=== PATIENT | female | born 1955 | race African-American/Black ===

== ENCOUNTER 2016-12-11 10:37 | Emergency (ER) | payer OTHER ==
[~2016-12-11 10:37] MED LIST: ALEVE220 MG PO; AMIT25 PO; ANOROELLIPTA INH; CELEXA20 PO; H5 PO; HYDROCHLOROT25 MG PO; KAPIDEX60 MG PO; LIOR10 PO; NASONEX NAS; NEUR300 PO; NICODERM C21 MG/241 TOP; NORV10 PO; NYSTATIN PO; PRIN20 PO; PROTONIX PO; REM15 PO; TEGXR200 PO; UNKNOWN INHALER PO; VALCYTE PO; VOLT75 PO
[2016-12-11 11:54] LABS: BASOPHILS 0.3 %; BASOPHILS ABSOLUTE 0.03 10/3/uL (0.0-0.16); EOSINOPHILS 0 %; HEMOGLOBIN 11.8 g/dL (12.0-16.0); IMMATURE GRANULOCYTES 0.4 %; IMMATURE GRANULOCYTES ABSOLUTE 0.04 10/3/uL (0.0-0.11); LYMPHOCYTES 17.4 %; LYMPHOCYTES ABSOLUTE 1.75 10/3/uL (0.67-4.30); MEAN CORPUS HGB CONC 32.7 g/dL (32.0-36.0); MEAN CORPUSCULAR HEMOGLOB 29.1 pg (26.0-34.0); MEAN PLATELET VOLUME 9.6 fL (9.2-13.0); MONOCYTES 12.7 %; MONOCYTES ABSOLUTE 1.27 10/3/uL (0.21-1.20); NEUTROPHILS 69.2 %; NEUTROPHILS ABSOLUTE 6.94 10/3/uL (2.02-8.40); RBC DISTRIBUTION WIDTH 15.7 % (12.0-16.0); RED CELL COUNT 4.06 10/6/uL (4.0-5.6)
[2016-12-11 11:56] LABS: ER CBC TAT 0 Hrs 09 Mins; HEMATOCRIT 36.1 % (36.0-48.0); MANUAL DIFF NO %; MEAN CORPUSCULAR VOLUME 88.9 fL (80-100); PLATELET COUNT 184 10/3/uL (150-400)
[2016-12-11 12:09] LABS: A/G RATIO 0.6 (0.7-1.9); ALBUMIN 2.4 G/DL (3.5-5.0); BUN (BLOOD UREA NITROGEN) 6 MG/DL (6-23); CALCIUM, SERUM 7.9 MG/DL (8.5-10.4); CO2 (CARBON DIOXIDE) 28 MMOL/L (24-34); CREATININE 0.54 MG/DL (0.55-1.02); GFR AFRICAN AMERICAN 116 ML/MIN (>=60); GFR NON AFRICAN AMERICAN 100 ML/MIN (>=60); GLOBULIN 4.1 G/DL (2.5-4.1); GLUCOSE, SERUM 110 MG/DL (60-99); POTASSIUM, SERUM 3.6 MMOL/L (3.5-5.3); SGPT(ALT) 15 U/L (5-65); TOTAL BILIRUBIN 0.7 MG/DL (0-1.2); TOTAL PROTEIN 6.5 G/DL (6.0-8.5)
[2016-12-11 12:19] LABS: ALKALINE PHOSPHATASE 79 U/L (45-117); CHLORIDE, SERUM 96 MMOL/L (96-112); SGOT(AST) 47 U/L (5-40); SODIUM, SERUM 135 MMOL/L (135-148)
[2016-12-11 12:26] LABS: ASCORBIC ACID (UR NOT ORDER) NEG (NEG); BILIRUBIN, URINE NEGATIVE (NEG); ER URINALYSIS TAT 0 Hrs 14 Mins; KETONE, URINE 20 MG/DL (NEG); LEUKOCYTE ESTERASE(NOT OR NEG (NEG); NITRITE (URINE) NEG (NEG); WBC (NOT ORDERED) (RFLEX) 8 (0-5)
== END 2016-12-11 13:46 | disposition home or self-care (01) ==
LOC: ER 10:37
PROVIDERS: Nurse Practitioner
DX: R11.2 Nausea with vomiting, unspecified (principal); J44.9 Chronic obstructive pulmonary disease, unspecified; I10 Essential (primary) hypertension; K21.9 Gastro-esophageal reflux disease without esophagitis; F31.9 Bipolar disorder, unspecified; F17.200 Nicotine dependence, unspecified, uncomplicated; Z90.710 Acquired absence of both cervix and uterus; Z91.018 Allergy to other foods; Z79.899 Other long term (current) drug therapy
CPT/HCPCS: 80053; 81001; 83690; 85025; 96374; 99284; J2405

== ENCOUNTER 2016-12-17 18:52 | Inpatient (IN) | payer OTHER ==
--- NOTE | ~2016-12-17 | CN ---
Consultation Report [facility] [address] [place]. [address] NAME: VANESSA YOST : 51 STATUS : ADM IN [facility]#: [id number] AGE: 61 ADM/REG DATE : 12/17/16 MR#: [id number] REPORT SERV DATE: 12/20/16 DICTATED BY: MAMIE DIEHL DATE: 12/18/16 REPORT STATUS : Draft TRANSCRIBED BY: MODL DATE: 12/18/16 PULMONARY CONSULTATION DATE OF CONSULTATION: 12/18/2016 REASON FOR CONSULTATION: Diffuse infiltrates. HISTORY OF PRESENT ILLNESS: Ms. Yost is a 61-year-old black female, smoker, with a history of COPD, and chronic hypoxia, on supplemental oxygen at a flow rate of 2 L/minute, who was admitted complaining of a nonproductive cough, shortness of breath, and wheezing for the past three to four weeks. Pulmonary was consulted secondary to diffuse infiltrates noted on chest x-ray and for possible bronchoscopy/BAL, particularly in light of the patient's history of CMV colitis. The patient denies fever, chills, night sweats, hemoptysis, or chest pain. She does have ongoing abdominal pain and anorexia. She takes albuterol as an outpatient for COPD and states she is on another inhaler, but is unable to name that medication. She reports poor compliance with her medications and feels albuterol has not helped her recent symptoms. As noted, she has a history of chronic hypoxia and is on supplemental oxygen at a flow rate of 2 L/minute 24 hours per day. She does not have an outpatient superintendent transportation. PAST MEDICAL HISTORY: 1. COPD, diagnosed by her primary care physician. 2. Chronic hypoxia - on supplemental oxygen at a flow rate of 2 L/minute 24 hours per day. 3. 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 4. Recurrent urinary tract infections with ESBL E coli. 5. Hypertension. 6. Bipolar disorder. 7. GERD. 8. Coronary artery disease. 9. Previous hysterectomy. 10.Previous . 11.Partial sigmoidectomy secondary to colon polyps. 12.Chronic back pain. 13.Environmental allergies. FAMILY HISTORY: Smoker sister from lung cancer. SOCIAL HISTORY: Ms. Yost smoked up to one pack of cigarettes per day for fifty years and currently smokes just under one pack of cigarettes per day. She has a history of regular smoking of crack cocaine, but she quit last year. She denies ethanol intake, other past/present drug use, or chewing tobacco. 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 She is engaged and has one adult Consultation Report [facility] [id number] [place]. [address] NAME: VANESSA YOST : 51 STATUS : ADM IN PAT#: [id number] AGE: 61 ADM/REG DATE : 12/17/16 MR#: [id number] REPORT SERV DATE: 12/20/16 DICTATED BY: MAMIE DIEHL DATE: 12/18/16 REPORT STATUS : Draft TRANSCRIBED BY: DENA DATE: 12/18/16 daughter. MEDICATIONS: Outpatient and inpatient medications were reviewed and are as documented in the record. As noted above, she was on albuterol and one other inhaler as an outpatient. ALLERGIES: SHE DENIES MEDICATION ALLERGIES. REVIEW OF SYSTEMS: A 10-point system review was conducted and is remarkable for the symptoms as described in history of present illness: PHYSICAL EXAMINATION: VITAL SIGNS: Temperature 97.1 degrees, heart rate 90, blood pressure 107/60, respiratory rate 20, oxygen saturation 93% on supplemental oxygen at a flow rate of 2 L/minute. GENERAL: A well-nourished, well-developed, black female. Alert, oriented, no apparent distress. Sitting up in the chair. HEENT: Normocephalic. Atraumatic. There is no scleral icterus. The conjunctivae are clear. The oropharynx is clear. NECK: Supple. No JVD or lymphadenopathy was noted. LUNGS: Diminished breath sounds throughout despite good effort. There are end-inspiratory, end-expiratory wheezes in all staples. There are few scattered rhonchi. There are no crackles. HEART: Regular rate and rhythm. No ectopy was noted. ABDOMEN: Soft. Nontender. Nondistended. There are normal bowel sounds in all four quadrants. BILATERAL EXTREMITIES: No clubbing, cyanosis, or edema. NEUROLOGICAL: Limited exam was found to be nonfocal. SKIN: No rashes were noted. LABORATORY RESULTS: Labs were reviewed and are as documented in the record. Notable labs include a white blood cell count of 13.6. The procalcitonin is 0.20. IMAGING: The chest x-ray done this admission revealed extensive diffuse reticulonodular infiltrates. There are no pleural effusions. The lung cuts from the CT scan of the abdomen and pelvis revealed similar infiltrates. ASSESSMENT AND PLAN: Ms. Yost is a 61-year-old black female, smoker, with known chronic obstructive lung disease and chronic hypoxia as well as a history of Cytomegalovirus colitis, who was admitted with nonproductive cough, shortness of breath, and wheezing as well as a diffuse reticular nodule infiltrate on chest x-ray. The etiology of her infiltrate is unknown. Her procalcitonin is within normal limits as noted above. Infectious Disease has evaluated this patient and recommended discontinuing antibiotics and antivirals until further workup can be completed. Consultation Report [address] [place]. [address] NAME: VANESSA YOST : 51 STATUS : ADM IN [facility]#: [id number] AGE: 61 ADM/REG DATE : 12/17/16 MR#: [id number] REPORT SERV DATE: 12/20/16 DICTATED BY: MAMIE DIEHL DATE: 12/18/16 REPORT STATUS : Draft TRANSCRIBED BY: MODL DATE: 12/18/16 I agree with bronchoscopy/BAL for diagnostic purposes and we will plan this procedure for 12/20/2016. The patient has agreed to the procedure. Recommend continuing bronchodilators. Would add nebulized steroid-budesonide 1 mg via nebulization twice daily will be added to her regimen. We recommend improving pulmonary toilet. Titrate oxygen as needed. Plan for bronchoscopy 12/20/2016 as noted above. The patient was counseled for more than five minutes regarding the importance of smoking cessation. Thank you very much for this evaluation. Further recommendations to follow. A CT scan of the chest will be ordered to further evaluate. PS/MODL Mamie Diehl M.D. / [id number] CC: Salvador Evans M.D.
--- NOTE | ~2016-12-17 | HP ---
History And Physical [facility] [address] [place]. [address] NAME: VANESSA YOST : 51 STATUS : ADM IN [facility]#: [id number] AGE: 61 ADM/REG DATE : 12/17/16 MR#: [id number] REPORT SERV DATE: 12/18/16 DICTATED BY: ROE CHAVES DATE: 12/17/16 REPORT STATUS : Draft TRANSCRIBED BY: MODL DATE: 12/17/16 DATE OF ADMISSION: 12/17/2016 CHIEF COMPLAINT: Cough and shortness of breath. HISTORY OF PRESENT ILLNESS: This is a 61-year-old -Burkinan female with a history of CMV colitis recently, ESBL E. coli urinary tract infections, bipolar disorder, hypertension who presents to the emergency room at [facility] with the above- mentioned complaint. 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 History is also obtained from reviewing data available on the [employer] system. According to available data, Mrs. Yost, since her discharge from here, has been doing poorly. In the last month or so, they have brought her back to the emergency room here at [facility] several times with complaints of intractable cough, shortness of breath, and failure to thrive. She had always been checked out and sent home with a prescription of outpatient antibiotic therapy. In the last two weeks, she has stopped eating and has really done very poorly. She has had a constant cough, which has not responded to any outside treatment so far. They finally decided to come to the emergency room again today. In the emergency room, initial workup including a CT of the abdomen and pelvis showed abnormal bilateral infiltrates with leukocytosis. She also had diarrhea, and Hospitalist Service is asked to admit her for further evaluation and treatment. At the time of my evaluation, she denied any chest pain or palpitations. She had no orthopnea. She had a cough, which was essentially nonproductive, not associated with any fevers or chills. She has not had any falls or loss of consciousness. She did have nausea with vomiting especially anything she takes by mouth. As mentioned above, she has had diarrhea with loose stools without any blood. They denied any recent hematemesis, hematochezia, or hematuria. No other history of recent travel or exposures other than those mentioned above. PAST MEDICAL HISTORY: Significant for history of recent admission for diarrhea, which was diagnosed with CMV colitis and was treated with ganciclovir; history of recurrent urinary tract infections with ESBL E. coli; history of hypertension; bipolar disorder; and COPD. SOCIAL HISTORY: She does not smoke, drink, or use recreational drugs at this time. FAMILY HISTORY: Noncontributory. MEDICATIONS: At home were reviewed by me in the chart today and reordered by me. REVIEW OF SYSTEMS: As in the history of present illness. All other systems were reviewed in detail and are quite unremarkable. History And Physical [address] [address] NAME: VANESSA YOST : 51 STATUS : ADM IN [facility]#: [id number] AGE: 61 ADM/REG DATE : 12/17/16 MR#: [id number] REPORT SERV DATE: 12/18/16 DICTATED BY: ROE CHAVES DATE: 12/17/16 REPORT STATUS : Draft TRANSCRIBED BY: DENA DATE: 12/17/16 PHYSICAL EXAMINATION: GENERAL: This is a pleasant 61-year-old, not in any acute distress. HEENT: Her head is atraumatic, normocephalic. She is alert, awake, oriented to time, place, and person. Pupils are equal, reacting to light and accommodating. External ocular muscles are intact. Membranes are moist and pink. Sclerae are nonicteric. NECK: Supple with no jugular venous distention, lymphadenopathy, or thyromegaly. LUNGS: Auscultation of her lungs revealed decreased air entry bilaterally. There were bilateral rales with few expiratory wheezes as well. Trachea appeared to be in the midline. HEART: Auscultation of her heart revealed normal rate and rhythm with no murmurs, rubs, or gallops. ABDOMEN: Soft, nontender. Bowel sounds are present. EXTREMITIES: Showed no cyanosis, clubbing, or edema. NEUROLOGIC: Grossly intact. No focal sensory or motor deficits. Higher functions appeared intact. Gait was not examined at this time. VITAL SIGNS: Today showed a temperature of 97.6, pulse 84, respirations 19 a minute, blood pressure was 107/61, oxygen saturations were 100% on 4 L of oxygen via nasal cannula. LABORATORY DATA: Reviewed on the [employer] system showed a pH of 7.46 on arterial blood gas, pCO2 was 41, PaO2 55, and bicarb was 28.8, this was on room air. CMP showed a sodium of 137, potassium was 3.4, chloride 97, CO2 of 30, BUN was 14 with a creatinine of 0.48. Blood glucose was 94. Troponin was 0.02. Lactate was 1.2. CBC showed a white blood cell count of 13,600, hemoglobin was 10.7, hematocrit 32.1, and platelet count was 231,000. Films of the CT scan of her abdomen and pelvis done today were reviewed by me on the PACS today and interpreted by me. Official radiology comments were also noted. Per my interpretation, the lung window showed new bilateral bronchiectasis and infiltrates. A 12-lead EKG done in the emergency room was reviewed and interpreted by me. There is normal sinus rhythm at a rate of 96 per minute. IMPRESSION: 1. Intractable cough. 2. Possible cytomegalovirus pneumonitis. 3. Bronchiectasis probably secondary to cytomegalovirus pneumonitis. 4. Diarrhea. 5. Recent cytomegalovirus colitis. There is cytomegalovirus colitis. 6. History of recurrent extended spectrum beta-lactamase Escherichia coli urinary tract infections. 7. Hypertension. 8. Bipolar disorder. 9. Chronic obstructive pulmonary disease. PLAN: We will admit Mrs. Yost to the Hospitalist Service with telemetry for close monitoring. After cultures are drawn, we will start her on empiric IV antibiotics. We will start her on Zosyn and vancomycin to cover for hospital-acquired infection. We will also start her on ganciclovir intravenously and go ahead and consult Infectious Disease. Dr. Bhavik Jarquin had seen her during her last admission. At that time, she had CMV colitis. We will also go ahead and check stool for Clostridium difficile colitis, and we will consult Pulmonary Service for possible bronchoalveolar lavage. Meanwhile, we will start her on IV History And Physical [address] [address] NAME: VANESSA YOST : 51 STATUS : ADM IN [facility]#: [id number] AGE: 61 ADM/REG DATE : 12/17/16 MR#: [id number] REPORT SERV DATE: 12/18/16 DICTATED BY: ROE CHAVES DATE: 12/17/16 REPORT STATUS : Draft TRANSCRIBED BY: MODL DATE: 12/17/16 fluids for volume replacement. Check chemistry and electrolytes, and replace as needed. We will replace her potassium today as well. Meanwhile, I will start her on bronchodilator treatments, continue supplemental oxygen therapy, continue all other medications and treatments. We will also place her on unfractionated heparin for DVT prophylaxis while she is here. I have discussed the above plans with the patient and family. Questions were answered, and they are agreeable to the above recommendations. Hospitalist Service will be following her during her stay here. /DENA Roe Chaves M.D. / [id number] CC: Salvador Evans M.D.
--- NOTE | ~2016-12-17 | EGD ---
EGD REPORT [facility] [address] [address] NAME: ELLEN YOST : 51 STATUS : ADM IN PAT#: [id number] AGE: 61 ADM/REG DATE : 12/17/16 MR#: [id number] REPORT SERV DATE: 12/27/16 DICTATED BY: NOELLE DAMON DATE: 12/27/16 REPORT STATUS : Draft TRANSCRIBED BY: [facility] DATE: 12/27/16 Pulmonology Patient Name: Ellen Yost Procedure Date: 12/27/2016 11:35 AM Date of : 1955 Attending MD: JUANA DAMNO MD Procedure Date No Time: 12/27/2016 Procedure: Navigational Bronchoscopy Indications: Bilateral infiltrates Providers: JUANA DAMON MD Referring MD: FABIÁN ARRIAGA Medicines: Lidocaine 2% 20 mL Complications: No immediate complications Procedure: Pre-Anesthesia Assessment: - A History and Physical has been performed. Patient meds and allergies have been reviewed. The risks and benefits of the procedure and the sedation options and risks were discussed with the patient. All questions were answered and informed consent was obtained. Patient identification and proposed procedure were verified prior to the procedure by the physician and the nurse in the pre-procedure area in the procedure room. Mental Status Examination: alert and oriented. Respiratory Examination: poor air movement and rhonchi. CV Examination: normal and RRR, no murmurs, no S3 or S4. ASA Grade Assessment: IV - A patient with severe systemic disease that is a constant threat to life. After reviewing the risks and benefits, the patient was deemed in satisfactory condition to undergo the procedure. The anesthesia plan was to use general anesthesia. Immediately prior to administration of medications, the patient was re-assessed for adequacy to receive sedatives. The heart rate, respiratory rate, oxygen saturations, blood pressure, adequacy of pulmonary ventilation, and response to care were monitored throughout the procedure. The physical status of the patient was re-assessed after the procedure. After obtaining informed consent, the Bronchoscope was introduced through the mouth, via the endotracheal tube (the patient was intubated for the procedure) and advanced to the tracheobronchial tree. the BF [id number] was introduced through the mouth, via the endotracheal tube (the patient was intubated for the procedure) and advanced to the tracheobronchial tree. The procedure was accomplished without difficulty. The patient tolerated the procedure well. EGD REPORT [address] [address] NAME: ELLEN YOST : 51 STATUS : ADM IN [facility]#: [id number] AGE: 61 ADM/REG DATE : 12/17/16 MR#: [id number] REPORT SERV DATE: 12/27/16 DICTATED BY: NOELLE DAMON DATE: 12/27/16 REPORT STATUS : Draft TRANSCRIBED BY: [employer] DATE: 12/27/16 Findings: The endotracheal tube is in good position. The visualized portion of the trachea is of normal caliber. The martha is sharp. The tracheobronchial tree was examined to at least the first subsegmental level. Bronchial mucosa and anatomy are normal; there are no endobronchial lesions, and no secretions. EBUS TBNA of lymph node level 11L x 4 passes for cytology EBUS TBNA of lymph node level 7 x 4 passes for cytology EBUS TBNA of lymph node level 11R x 4 passes for cytology and cultures Using SuperDimension Edge catheter 180, peripheral probe EBUS 17s, and fluoroscopy, I performed the following biopsies: RLL cavitary lesion transbronchial needle aspirates x 4 passes for cytology RLL cavitary lesion transbronchial brush biopsy x 2 pass for cytology and cultures RLL cavitary lesion transbronchial forcep biopsies x 4 passes for histopathology Bronchoalveolar lavage was performed in the right lower lobe of the lung and sent for cell count, bacterial culture, viral smears \\T\\ culture, and fungal \\T\\ AFB analysis. 120 mL of fluid were instilled. 20 mL were returned. The return was blood-tinged and cellular. Impression: Rapid On-Site Evaluation (BRITTANY): Preliminary cytology is "ATYPICAL, SUSPICIOUS FOR MALIGNANCY" (final results are pending). Recommendation: - Await test results. - Chest X-ray post-procedure. - Follow up with bronchoscopist tomorrow. Attending Participation: I personally performed the entire procedure. JUANA DAMON MD 12/27/2016 12:52 PM This report has been signed electronically. Number of Addenda: 0 Note Initiated On: 12/27/2016 11:35 AM [address] [address]
--- NOTE | ~2016-12-17 | IDS ---
Interim Discharge Summary [facility] [address] [place]. [address] NAME: VANESSA YOST : 51 STATUS : ADM IN [facility]#: [id number] AGE: 61 ADM/REG DATE : 12/17/16 MR#: [id number] REPORT SERV DATE: 12/27/16 DICTATED BY: NARAYANYUAN SANTANA DATE: 12/27/16 REPORT STATUS : Draft TRANSCRIBED BY: MODL DATE: 12/27/16 ADMISSION DATE: 12/17/2016 DISCHARGE DATE: WORKING DIAGNOSES: 1. Acute exacerbation of chronic obstructive pulmonary disease, present on admission, resolving. 2. Acute hypoxic respiratory failure, present on admission, resolving. 3. Pulmonary infiltrates/multifocal pneumonia with adenopathy, status post endobronchial ultrasound today. 4. Bronchoscopy with uncontrolled bleeding requiring intubation and mechanical ventilation earlier during the hospital stay after initial bronchoscopy performed on 12/21/2016. 5. Elevated inflammatory markers and other nonspecific signs such as weight loss. 6. History of Cytomegalovirus colitis. 7. Hypertension. 8. Anxiety. CONSULTANTS: 1. Dr. Howard of Pulmonology. 2. Dr. Jarquin of Infectious Disease. PROCEDURES: 1. Bronchoscopy performed on 12/21/2016, that was complicated by uncontrolled bleeding. The patient's bronchoscopy was not completed and the patient was actually transferred to CCU after the bronchoscopy. The patient required mechanical ventilation for two days. 2. EBUS performed by Dr. Michelle today with preliminary cytology concerning for atypical suspicious for malignancy. Otherwise, benign. HOSPITAL COURSE: This is a 61-year-old lady who was admitted to the hospital with acute hypoxic respiratory failure. For details, please refer to H and P by Dr. Roe Tes. In summary, the patient was admitted and initially started on empiric antibiotics and bronchodilator therapy. The patient was seen by Pulmonology and underwent bronchoscopy, which was complicated with uncontrolled bleeding and necessitated the patient to be transferred to CCU for mechanical ventilation. I assumed care of this patient after the patient came out of the ICU in stable condition. The patient was actually clinically improving with minimal oxygen requirements. The patient was also seen by Dr. Jarquin of Infectious Disease, who was concerned about the patient's multifocal infiltrates along with adenopathy as well as high titers of inflammatory markers. It was also concerning the patient had a history of CMV colitis without obvious history of immune compromise. Also, the patient had lost quite a bit of weight unintentionally. So, between all those symptoms and history, it was recommended the patient be tried for another bronchoscopy, at this time EBUS by Dr. Michelle, which was performed today. For now, patient is not on any antibiotic therapy. The patient remains on a small amount of p.o. prednisone taper. The patient is now off oxygen. We will await pathology and culture results from the EBUS today. I anticipate the patient may be discharged home soon given her significant clinical Interim Discharge Summary [address] [address] NAME: VANESSA YOST : 51 STATUS : ADM IN [facility]#: [id number] AGE: 61 ADM/REG DATE : 12/17/16 MR#: [id number] REPORT SERV DATE: 12/27/16 DICTATED BY: YUAN BUSCH DATE: 12/27/16 REPORT STATUS : Draft TRANSCRIBED BY: DENA DATE: 12/27/16 improvement over the past few days. [facility] [place] Yuan Busch MD / [id number] CC: MD Dougie Sherman M.D.
--- NOTE | ~2016-12-17 | OP ---
Record Of Operation [facility] [address] [place]. [address] NAME: VANESSA YOST : 51 STATUS : ADM IN PAT#: [id number] AGE: 61 ADM/REG DATE : 12/17/16 MR#: [id number] REPORT SERV DATE: 12/21/16 DICTATED BY: KELSEY HOWARD DATE: 12/20/16 REPORT STATUS : Draft TRANSCRIBED BY: MODL DATE: 12/20/16 DATE OF PROCEDURE: 12/20/2016 PROCEDURE: Bronchoscopy with bronchoalveolar lavage and transbronchial biopsies. PREOPERATIVE DIAGNOSIS: Multi-focal pneumonia. POSTOPERATIVE DIAGNOSES: Multi-focal pneumonia, asthma exacerbation, and hemoptysis. PROCEDURE NOTE: The patient was brought to the bronchoscopy suite, discussed procedure with the patient prior to conducting the procedure. Anesthesia intubated the patient for airway protection and provided sedation. We conducted an airway examination which showed no significant endobronchial abnormality, edema, or friability. No secretions or sputums were noticed. We instilled lidocaine through both lungs for local anesthesia. We then did a complete airway examination and did a bronchoalveolar lavage of the right upper lobe apical subsegment. We then conducted a transbronchial biopsy. We used fluoroscopy and obtained around one rib length away from the pleura. The patient began having bleeding of that subsegment. We continued to suction for quite some time, around 5 minutes. We attempted to use epinephrine along with cold saline, but this did not stop the bleeding. We were having a little bit of difficulty with hypercapnia as the ET tube kept intubating the right mainstem. We then had to pull back the ET tube and clear the bronchoscope several times. We then used a Karrie catheter and obstructed the right upper lobe and waited for about 7 minutes and achieved only a stasis. We removed the Karrie catheter and no further bleeding was noted. We cleaned up the airways. We were having difficulty with peak pressure, oxygenation improved. It went down to around 85. At the end of the procedure, we had decided that we will no longer do any further transbronchial biopsies. Fluoroscopy was used to make sure we did not have a pneumothorax with an increased peak pressure. We then went ahead and recognized that with her elevated peak pressures we examined her breath sounds, and she had diffuse wheezing bilaterally which lasted around 15 minutes. We then decided that extubation would not be optimal for this patient. We did give her albuterol in the procedure which helped to a small degree, and the patient was left intubated and transferred out to the CCU. OUTCOME: Successful bronchoalveolar lavage, we were able to obtain one transbronchial biopsy; however, we had underlying hemoptysis which was stabilized. The patient had an asthma exacerbation with all the endobronchial bleeding that was noted. After seeing the patient several hours after the procedure in the CCU, the patient had no further significant wheezing or peak pressures and was started on nebulizers along with prednisone. The patient is to stay intubated until the morning for extubation trial. SHIRINQ/DENA Kelsey Howard MD Record Of [address] [address] NAME: VANESSA YOST : 51 STATUS : ADM IN PAT#: [id number] AGE: 61 ADM/REG DATE : 12/17/16 MR#: [id number] REPORT SERV DATE: 12/21/16 DICTATED BY: KELSEY HOWARD DATE: 12/20/16 REPORT STATUS : Draft TRANSCRIBED BY: DENA DATE: 12/20/16 / [id number] CC: Salvador Evans M.D.
--- NOTE | ~2016-12-17 | DS ---
Discharge Summary [facility] [address] [facility] [place]. [address] NAME: VANESSA YOST : 51 STATUS : DIS IN PAT#: [id number] AGE: 61 ADM/REG DATE : 12/17/16 MR#: [id number] REPORT SERV DATE: 12/31/16 DICTATED BY: ORALIA HOWE DATE: 12/30/16 REPORT STATUS : Draft TRANSCRIBED BY: MODL DATE: 12/30/16 ADMISSION DATE: 12/17/2016 DISCHARGE DATE: 12/30/2016 DISCHARGE DIAGNOSES: 1. Diffuse reticulonodular infiltrates, right greater than left, with small focal area of consolidation at the lateral right lower lobe. Right upper lobe bronchoalveolar lavage for cytology negative on 12/20/2016. Bronchoscopy with biopsy, small, mostly alveolar tissue with patchy carbon fragment. No evidence of infection or tumor. GMS stain negative for Pneumocystis or fungus. Endobronchial ultrasound cytology, 12/27/2016, lymph node negative, bronchial brushings negative. Bronchoalveolar lavage, atypical cells with GMS stain, rare budding yeast, and no Pneumocystis. Right lower lobe biopsy, patchy organizing pneumonia. 2. Acute hypoxemic respiratory failure, improved at discharge on corticosteroids. 3. Acute exacerbation of chronic obstructive pulmonary disease. 4. Hypertension. 5. Extended-spectrum beta-lactamases Escherichia coli urinary tract infection. 6. Bipolar disorder. 7. History of acute kidney injury in 08/2016, necessitating hemodialysis. Acute kidney injury thought to be due to intravascular volume depletion secondary to diuretics, angiotensin-converting enzyme inhibitors, and possibly nonsteroidal antiinflammatory drugs. 8. Admission, 10/07/2016 to 10/19/2016, with cytomegalovirus colitis. 9. Monoclonal protein, IgM kappa with faint lambda restriction. Further outpatient followup needed. OPERATIONS AND PROCEDURES: 1. Bronchoscopy with bronchoalveolar lavage and transbronchial biopsies, complicated by underlying hemoptysis necessitating intubation, mechanical ventilation, and ICU transfer. 2. EBUS, 12/27/2016. PRESENT ILLNESS: This is a 61-year-old female who was triaged in the emergency room on 12/17/2016, at 1725 hours with complaint of "hasn't eaten in two weeks." Admission vital signs: Blood pressure 102/64, temperature 97.6, pulse 98, respirations 19, O2 saturation 88% on room air. Her emergency room evaluation included chest and abdominal imaging. She was found to have diffuse reticulonodular infiltrates on chest CT. She was referred to the hospitalist service for admission. She was admitted by Dr. Roe Tse as described on admission history and physical examination. ADDITIONAL HISTORY: Per Dr. Tse. PHYSICAL EXAMINATION: Per Dr. Tse. Discharge Summary [address] [address] NAME: VANESSA YOST : 51 STATUS : DIS IN PAT#: [id number] AGE: 61 ADM/REG DATE : 12/17/16 MR#: [id number] REPORT SERV DATE: 12/31/16 DICTATED BY: ORALIA HOWE DATE: 12/30/16 REPORT STATUS : Draft TRANSCRIBED BY: MODJuarez DATE: 12/30/16 ADMISSION LABORATORY: Per Dr. Tse. She was admitted as described by Dr. Tse. He was concerned that she might possibly have CMV pneumonitis. She was admitted to [address] [place] [address]. She was started empirically on broad-spectrum antimicrobial therapy in addition to ganciclovir. Infectious Disease and Pulmonary consultations were obtained. Her hospitalist care was assumed by Dr. Subramanian. Her hospital course from admission through 12/27/2016, is as outlined on the interim summary dictated by Dr. Subramanian. Her hospital care was assumed by the undersigned on 12/28/2016, and she was seen on 12/28/2016, 12/29/2016, and 12/30/2016. At that time, she had the above-mentioned procedures. Her case was discussed daily with Infectious Disease continuous improvement consultant, Dr. Jarquin and Pulmonary continuous improvement consultant, Dr. Michelle. There was a concern that she might have an underlying infectious process accounting for her presentation, though at this time, she was improving off antimicrobial therapy, antiviral therapy, and on steroids alone. All routine cultures obtained during her procedures were no growth. AFB stains were negative with cultures for AFB, fungus, and Nocardia pending. Consideration was given to proceeding with an open-lung biopsy, but with her clinical improvement on corticosteroids and her final path demonstrating organizing pneumonia, it was decided a reasonable course would be to continue corticosteroids and an outpatient tapering course with close followup by Dr. Cisse in the Pulmonary Clinic with a repeat CT scan and pulmonary function tests in three weeks in addition to unscheduled followup for any acute decompensation. By 12/30/2016, her cough and sputum had diminished significantly. She was eating without nausea, vomiting, or diarrhea. Her vital signs were stable and her room air sat was 98%. She had some dysuria on 12/28/2016. Her urine culture grew E coli ESBL. She had been treated with single-dose gentamicin with improved symptomatology at discharge. By 12/30/2016, all parties felt she had achieved a level of improvement and stability where she could be safely discharged home to be seen by Dr. Cisse in three weeks with a followup CT scan at that time. She will also need additional evaluation of a monoclonal protein, IgM kappa that returned at the time of discharge. Note, quantitative immunoglobulins were normal. She will also follow up with her primary care physician, Dr. Dougie Chauhan, this month and Dr. Gonsalez, her psychiatrist. Discharge Summary [address] [address] NAME: VANESSA YOST : 51 STATUS : DIS IN PAT#: [id number] AGE: 61 ADM/REG DATE : 12/17/16 MR#: [id number] REPORT SERV DATE: 12/31/16 DICTATED BY: ORALIA HOWE DATE: 12/30/16 REPORT STATUS : Draft TRANSCRIBED BY: MODJuarez DATE: 12/30/16 She will continue her home diet and activity. DISCHARGE MEDICATIONS: Norvasc 10 mg daily; Tegretol 200 mg twice daily; Celexa 20 mg daily; Haldol 5 mg daily; Protonix 40 mg twice daily; potassium 10 mEq three times daily; prednisone 40 mg daily for two weeks, 30 mg daily for two weeks, 20 mg daily for two weeks, 10 mg daily for two weeks, 5 mg daily for one week pending outpatient followup with Dr. Cisse; Mora 10/325 three times daily as needed; Levsin 0.125 mg every 6 hours as needed, Anoro Ellipta one inhalation daily, and Macrobid 100 mg twice daily for the next seven days. DISCHARGE TIME: Greater than 30 minutes. DD/MODL Oralia Howe M.D. / [id number] CC: Salvador Evans M.D. Pamela Sud, M.D.
[2016-12-17 18:28] LABS: BASOPHILS 0.7 %; BASOPHILS ABSOLUTE 0.09 10/3/uL (0.0-0.16); EOSINOPHILS 0.1 %; EOSINOPHILS ABSOLUTE 0.02 10/3/uL (0.0-0.53); HEMOGLOBIN 10.7 g/dL (12.0-16.0); IMMATURE GRANULOCYTES 1.9 %; IMMATURE GRANULOCYTES ABSOLUTE 0.26 10/3/uL (0.0-0.11); LYMPHOCYTES 17.7 %; LYMPHOCYTES ABSOLUTE 2.41 10/3/uL (0.67-4.30); MEAN CORPUS HGB CONC 33.3 g/dL (32.0-36.0); MEAN CORPUSCULAR HEMOGLOB 29.3 pg (26.0-34.0); MEAN CORPUSCULAR VOLUME 87.9 fL (80-100); MONOCYTES 13.5 %; MONOCYTES ABSOLUTE 1.83 10/3/uL (0.21-1.20); NEUTROPHILS 66.1 %; NEUTROPHILS ABSOLUTE 8.98 10/3/uL (2.02-8.40); PLATELET COUNT 231 10/3/uL (150-400); RBC DISTRIBUTION WIDTH 15.4 % (12.0-16.0); RED CELL COUNT 3.65 10/6/uL (4.0-5.6); WHITE BLOOD CELLS 13.6 10/3/uL (4.5-10.5)
[2016-12-17 18:35] LABS: HEMATOCRIT 32.1 % (36.0-48.0); MANUAL DIFF NO %
[2016-12-17 18:44] LABS: CALCIUM, SERUM 8.8 MG/DL (8.5-10.4); CHLORIDE, SERUM 97 MMOL/L (96-112); CO2 (CARBON DIOXIDE) 30 MMOL/L (24-34); CREATININE 0.48 MG/DL (0.55-1.02); GFR AFRICAN AMERICAN 121 ML/MIN (>=60); GFR NON AFRICAN AMERICAN 104 ML/MIN (>=60); GLUCOSE, SERUM 94 MG/DL (60-99); SGPT(ALT) 14 U/L (5-65); SODIUM, SERUM 137 MMOL/L (135-148); TOTAL BILIRUBIN 0.4 MG/DL (0-1.2); TOTAL PROTEIN 7.2 G/DL (6.0-8.5); TROPONIN I <0.02 NG/ML (<0.05)
[2016-12-17 18:45] LABS: A/G RATIO 0.3 (0.7-1.9); ALBUMIN 1.7 G/DL (3.5-5.0); ALKALINE PHOSPHATASE 93 U/L (45-117); BUN (BLOOD UREA NITROGEN) 14 MG/DL (6-23); CPK 98 U/L (0-200); GLOBULIN 5.5 G/DL (2.5-4.1); POTASSIUM, SERUM 3.4 MMOL/L (3.5-5.3); SGOT(AST) 72 U/L (5-40)
[2016-12-17 19:08] LABS: BAND NEUTROPHILS 3 %; BURR CELLS 1+ (3-10/OIF) (0-2/OIF); ER DIFF TAT 0 Hrs 46 Mins; IMMATURE GRANS ABSOLUTE (CALC) 0.27 10/3/uL (0.0-0.11); LYMPHOCYTES 12 %; LYMPHOCYTES ABSOLUTE (CALC) 1.63 10/3/uL (0.67-4.30); METAMYELOCYTES 2 %; MONOCYTES 13 %; MONOCYTES ABSOLUTE (CALC) 1.77 10/3/uL (0.21-1.20); NEUTROPHILS ABSOLUTE (CALC) 9.93 10/3/uL (2.02-8.40); PLATELET ESTIMATE ADQ (ADEQUATE); SEGMENTED NEUTROPHIL (0) 70 %; TOTAL NUCLEATED CELLS 100; TOXIC GRANULATION 1+
[2016-12-17 19:37] LABS: ALLENS TEST Pos; BE (BASE EXCESS) 4.6 MEQ/L (0 +/- 2.5); CARBOXYHEMOGLOBIN 1.8 % (0-3); HCO3 (ACTUAL BICARBONATE) 28.8 MEQ/L (23-27); HEMOBLOGIN CONTENT 11.3 G/DL (12-16); INSTRUMENT SERIAL # 8087; METHEMOGLOBIN 0.3 % (0-3); O2 CONTENT 13.3 VOL% (18-24); OPERATOR ID 17589; PCO2 (CO2 TENSION) 41 MMHG (35-45); PO2 (O2 TENSION) 55 MMHG (79-93); SAMPLE Arterial; pH 7.46 (7.37-7.43)
[2016-12-17] MEDS ORDERED: NORCO1 TAB PO (21:00)
[2016-12-17] MEDS ORDERED: PROTONIX PO (21:00)
[2016-12-17] MEDS ORDERED: NORV10 PO (21:01)
[2016-12-17] MEDS ORDERED: CELEXA20 PO (21:14)
[2016-12-17] MEDS ORDERED: TEGXR200 PO (21:14)
[2016-12-17] MEDS ORDERED: H5 PO (21:15)
[2016-12-17] MEDS ORDERED: LEVSINTAB PO (21:15)
[2016-12-17] MEDS ORDERED: ANOROELLIPTA INH (21:18)
[2016-12-17 21:38] LABS: ASCORBIC ACID (UR NOT ORDER) NEG (NEG); BILIRUBIN, URINE SMALL (NEG); ER URINALYSIS TAT 0 Hrs 18 Mins; KETONE, URINE 20 MG/DL (NEG); LEUKOCYTE ESTERASE(NOT OR NEG (NEG); NITRITE (URINE) NEG (NEG); WBC (NOT ORDERED) (RFLEX) 13 (0-5)
[2016-12-18 16:59] LABS: HEMATOCRIT 30.4 % (36.0-48.0); HEMOGLOBIN 9.8 g/dL (12.0-16.0); MEAN CORPUS HGB CONC 32.2 g/dL (32.0-36.0); MEAN CORPUSCULAR VOLUME 89.9 fL (80-100); MEAN PLATELET VOLUME 10.4 fL (9.2-13.0); PLATELET COUNT 196 10/3/uL (150-400); RBC DISTRIBUTION WIDTH 15.3 % (12.0-16.0); RED CELL COUNT 3.38 10/6/uL (4.0-5.6); WHITE BLOOD CELLS 12.1 10/3/uL (4.5-10.5)
[2016-12-18 17:00] LABS: MANUAL DIFF YES %
[2016-12-18 17:13] LABS: A/G RATIO 0.3 (0.7-1.9); ALBUMIN 1.7 G/DL (3.5-5.0); ALKALINE PHOSPHATASE 85 U/L (45-117); CALCIUM, SERUM 7.9 MG/DL (8.5-10.4); CHLORIDE, SERUM 104 MMOL/L (96-112); CO2 (CARBON DIOXIDE) 26 MMOL/L (24-34); COMPLEMENT C3 119 MG/DL (75-161); COMPLEMENT C4 28.6 MG/DL (16-47); CREATININE 0.51 MG/DL (0.55-1.02); GFR AFRICAN AMERICAN 119 ML/MIN (>=60); GFR NON AFRICAN AMERICAN 102 ML/MIN (>=60); GLUCOSE, SERUM 110 MG/DL (60-99); POTASSIUM, SERUM 3.2 MMOL/L (3.5-5.3); SGOT(AST) 46 U/L (5-40); SGPT(ALT) 16 U/L (5-65); SODIUM, SERUM 139 MMOL/L (135-148); TOTAL BILIRUBIN 0.2 MG/DL (0-1.2); TOTAL PROTEIN 6.7 G/DL (6.0-8.5)
[2016-12-18 17:17] LABS: BUN (BLOOD UREA NITROGEN) 7 MG/DL (6-23); RHEUMATOID FACTOR QUANT < 10 IU/ML (0-15)
[2016-12-18 17:28] LABS: ATYPICAL LYMPH FEW (3-5%) (0-5%); BAND NEUTROPHILS 14 %; IMMATURE GRANS ABSOLUTE (CALC) 0.36 10/3/uL (0.0-0.11); LYMPHOCYTES 19 %; METAMYELOCYTES 3 %; MONOCYTES 1 %; MONOCYTES ABSOLUTE (CALC) 0.12 10/3/uL (0.21-1.20); NEUTROPHILS ABSOLUTE (CALC) 9.32 10/3/uL (2.02-8.40); SEGMENTED NEUTROPHIL (0) 63 %; TOTAL NUCLEATED CELLS 100
[2016-12-18 17:29] LABS: PLATELET ESTIMATE ADQ (ADEQUATE)
[2016-12-18 17:49] LABS: SED RATE 99 MM/HR (0-20)
[2016-12-19 07:11] LABS: HEMATOCRIT 29.8 % (36.0-48.0); HEMOGLOBIN 9.4 g/dL (12.0-16.0); MEAN CORPUS HGB CONC 31.5 g/dL (32.0-36.0); MEAN CORPUSCULAR HEMOGLOB 28.7 pg (26.0-34.0); MEAN CORPUSCULAR VOLUME 90.9 fL (80-100); PLATELET COUNT 193 10/3/uL (150-400); RBC DISTRIBUTION WIDTH 15.6 % (12.0-16.0); RED CELL COUNT 3.28 10/6/uL (4.0-5.6); WHITE BLOOD CELLS 10.4 10/3/uL (4.5-10.5)
[2016-12-19 07:16] LABS: MANUAL DIFF YES %
[2016-12-19 07:21] LABS: CHLORIDE, SERUM 106 MMOL/L (96-112); CO2 (CARBON DIOXIDE) 23 MMOL/L (24-34); CREATININE 0.43 MG/DL (0.55-1.02); GFR AFRICAN AMERICAN 125 ML/MIN (>=60); GFR NON AFRICAN AMERICAN 108 ML/MIN (>=60); GLUCOSE, SERUM 116 MG/DL (60-99); POTASSIUM, SERUM 3.8 MMOL/L (3.5-5.3); SODIUM, SERUM 139 MMOL/L (135-148)
[2016-12-19 07:22] LABS: BUN (BLOOD UREA NITROGEN) 3 MG/DL (6-23)
[2016-12-19 07:23] LABS: CALCIUM, SERUM 7.6 MG/DL (8.5-10.4)
[2016-12-19 09:20] LABS: BAND NEUTROPHILS 13 %; EOSINOPHILS 1 %; IMMATURE GRANS ABSOLUTE (CALC) 0.52 10/3/uL (0.0-0.11); LYMPHOCYTES 22 %; LYMPHOCYTES ABSOLUTE (CALC) 2.29 10/3/uL (0.67-4.30); METAMYELOCYTES 4 %; MONOCYTES 11 %; MONOCYTES ABSOLUTE (CALC) 1.14 10/3/uL (0.21-1.20); MYELOCYTES 2 %; NEUTROPHILS ABSOLUTE (CALC) 6.34 10/3/uL (2.02-8.40); PLATELET ESTIMATE ADQ (ADEQUATE); SEGMENTED NEUTROPHIL (0) 47 %; TOTAL NUCLEATED CELLS 100
[2016-12-19 09:21] LABS: HELMET CELLS OCC (0-2/OIF); POLYCHROMASIA 1+ (2-5/OIF) (0-1/OIF); TARGET CELLS OCC (1-2/OIF) (0-1/OIF); TOXIC GRANULATION 1+; VACUOLATED NEUTROPHILES OCC
[2016-12-19 20:31] LABS: ASCORBIC ACID (UR NOT ORDER) NEG (NEG); BILIRUBIN, URINE NEGATIVE (NEG); KETONE, URINE NEGATIVE (NEG); LEUKOCYTE ESTERASE(NOT OR NEG (NEG); WBC (NOT ORDERED) (RFLEX) 2 (0-5)
[2016-12-20 06:18] LABS: HEMATOCRIT 29.8 % (36.0-48.0); HEMOGLOBIN 9.6 g/dL (12.0-16.0); MEAN CORPUS HGB CONC 32.2 g/dL (32.0-36.0); MEAN CORPUSCULAR HEMOGLOB 29.1 pg (26.0-34.0); MEAN CORPUSCULAR VOLUME 90.3 fL (80-100); MEAN PLATELET VOLUME 10.5 fL (9.2-13.0); PLATELET COUNT 215 10/3/uL (150-400); RBC DISTRIBUTION WIDTH 15.6 % (12.0-16.0); RETICULOCYTE COUNT 1.2 % (0.5-2.5); RETICULOCYTE COUNT ABSOLUTE 38.3 10/3/uL (20.2-119.8); WHITE BLOOD CELLS 9.3 10/3/uL (4.5-10.5)
[2016-12-20 06:19] LABS: MANUAL DIFF YES %
[2016-12-20 06:34] LABS: A/G RATIO 0.3 (0.7-1.9); ALBUMIN 1.5 G/DL (3.5-5.0); ALKALINE PHOSPHATASE 78 U/L (45-117); BUN (BLOOD UREA NITROGEN) 2 MG/DL (6-23); CALCIUM, SERUM 8.5 MG/DL (8.5-10.4); CHLORIDE, SERUM 105 MMOL/L (96-112); CREATININE 0.41 MG/DL (0.55-1.02); GFR AFRICAN AMERICAN 127 ML/MIN (>=60); GFR NON AFRICAN AMERICAN 110 ML/MIN (>=60); GLOBULIN 4.7 G/DL (2.5-4.1); SGOT(AST) 30 U/L (5-40); SGPT(ALT) 12 U/L (5-65); SODIUM, SERUM 140 MMOL/L (135-148); TOTAL BILIRUBIN 0.2 MG/DL (0-1.2); TOTAL PROTEIN 6.2 G/DL (6.0-8.5)
[2016-12-20 06:36] LABS: CO2 (CARBON DIOXIDE) 28 MMOL/L (24-34); GLUCOSE, SERUM 86 MG/DL (60-99); INTERNATIONAL NORMAL RATI 1.1 UNITS (-); PARTIAL THROMBO TIME 26.3 SEC (22.5-37.2)
[2016-12-20 07:05] LABS: BAND NEUTROPHILS 10 %; IMMATURE GRANS ABSOLUTE (CALC) 0.74 10/3/uL (0.0-0.11); LYMPHOCYTES 18 %; LYMPHOCYTES ABSOLUTE (CALC) 1.67 10/3/uL (0.67-4.30); METAMYELOCYTES 6 %; MONOCYTES 10 %; MONOCYTES ABSOLUTE (CALC) 0.93 10/3/uL (0.21-1.20); MYELOCYTES 2 %; NEUTROPHILS ABSOLUTE (CALC) 5.95 10/3/uL (2.02-8.40); PLATELET ESTIMATE ADQ (ADEQUATE); RBC MORPHOLOGY NORM (NORMAL); SEGMENTED NEUTROPHIL (0) 54 %; TOTAL NUCLEATED CELLS 100
[2016-12-20 10:32] LABS: T PROTEIN (ELECT)(NOT OR 5.7 G/DL (6.0-8.5)
[2016-12-20 11:35] LABS: ANA TITER <1:40 TITER
[2016-12-20 13:28] LABS: HEPATITIS C ANTIBODY NON-REACTIVE (NON-REACT)
[2016-12-20 13:30] LABS: HEPATITIS B CORE AB IGM NON-REACTIVE (NON-REAC); HIV COMBO NON-REACTIVE (NON REAC)
[2016-12-20 13:31] LABS: HEP A ANTIBODY IGM NON-REACTIVE (NON-REACT)
[2016-12-20 13:54] LABS: HEPATITIS B SURFACE ANTIGEN NON-REACTIVE (NON-REACT)
[2016-12-20 15:32] LABS: CMV DNA PCR QUAL Not Detected (NOTDET); CMV SOURCE Plasma (())
[2016-12-20 16:30] LABS: BE (BASE EXCESS) 3.1 MEQ/L (0 +/- 2.5); CARBOXYHEMOGLOBIN 0.3 % (0-3); HCO3 (ACTUAL BICARBONATE) 29.4 MEQ/L (23-27); HEMOBLOGIN CONTENT 9.8 G/DL (12-16); INSTRUMENT SERIAL # 35151; O2 CONTENT 14.6 VOL% (18-24); PCO2 (CO2 TENSION) 54 MMHG (35-45); PO2 (O2 TENSION) 393 MMHG (79-93); pH 7.35 (7.37-7.43)
[2016-12-20 16:31] LABS: ALLENS TEST Pos; SAMPLE Arterial; TIDAL VOLUME 550 ML
[2016-12-20 17:26] LABS: BD FL LYMPH (NOT ORD) 7 %; BD FL SOURCE (NOT ORD) BAL; BF BASO (NOT OF) 0 %; BF LARGE MONONUCLEAR 28 %; BF TOTAL CELL CT (NOT ORD 646 /MM3; BODY FLUID EOS (NOT ORD) 0 %; BODY FLUID RBC (NOT ORD) < 1000 /MM3; BODY FLUID SEG (NOT ORD) 65 %
[2016-12-21 05:26] LABS: HEMOGLOBIN 8.9 g/dL (12.0-16.0); MEAN CORPUSCULAR HEMOGLOB 30.7 pg (26.0-34.0); MEAN CORPUSCULAR VOLUME 90.3 fL (80-100); MEAN PLATELET VOLUME 11.2 fL (9.2-13.0); PLATELET COUNT 211 10/3/uL (150-400); RBC DISTRIBUTION WIDTH 15.6 % (12.0-16.0); WHITE BLOOD CELLS 6.1 10/3/uL (4.5-10.5)
[2016-12-21 05:28] LABS: HEMATOCRIT 26.2 % (36.0-48.0); MANUAL DIFF YES %
[2016-12-21 06:36] LABS: BAND NEUTROPHILS 13 %; IMMATURE GRANS ABSOLUTE (CALC) 0.37 10/3/uL (0.0-0.11); LYMPHOCYTES 20 %; LYMPHOCYTES ABSOLUTE (CALC) 1.22 10/3/uL (0.67-4.30); METAMYELOCYTES 5 %; MONOCYTES 7 %; MONOCYTES ABSOLUTE (CALC) 0.43 10/3/uL (0.21-1.20); MYELOCYTES 1 %; NEUTROPHILS ABSOLUTE (CALC) 4.09 10/3/uL (2.02-8.40); SEGMENTED NEUTROPHIL (0) 54 %; TOTAL NUCLEATED CELLS 100
[2016-12-21 06:37] LABS: PLATELET ESTIMATE ADQ (ADEQUATE); RBC MORPHOLOGY NORM (NORMAL)
[2016-12-21 08:09] LABS: BUN (BLOOD UREA NITROGEN) 5 MG/DL (6-23); CALCIUM, SERUM 8.5 MG/DL (8.5-10.4); CHLORIDE, SERUM 104 MMOL/L (96-112); CO2 (CARBON DIOXIDE) 31 MMOL/L (24-34); CREATININE 0.38 MG/DL (0.55-1.02); GFR AFRICAN AMERICAN 131 ML/MIN (>=60); GFR NON AFRICAN AMERICAN 113 ML/MIN (>=60); POTASSIUM, SERUM 4.3 MMOL/L (3.5-5.3); SODIUM, SERUM 142 MMOL/L (135-148)
[2016-12-21 08:10] LABS: GLUCOSE, SERUM 129 MG/DL (60-99)
[2016-12-21 10:17] LABS: A/G 0.43 RATIO (0.9-2.10); ALB RELATIVE % 30.3 % (60.0-89.0); ALBUMIN (ELECTRO) 1.73 GM/DL (3.2-5.5); ALPHA 1 RELAT % (NOT ORD) 10.5 % (1.0-4.0); ALPHA 2 (ELECTRO) 1.16 GM/DL (0.5-1.10); ALPHA 2 RELAT % 20.3 % (4.5-26.0); BETA GLOBULIN (SPE) 0.68 GM/DL (0.60-1.30); GAMMA GLOBULIN (SPE) 1.53 G/DL (0.70-1.60); GAMMA RELAT % 26.9 % (6.0-22.0)
[2016-12-21 23:21] LABS: ANCA <1:20 (()); MYELOPEROXIDASE ANTIBODY <0.2 AI (<1.0); PROTEINASE 3 ANTIBODY <0.2 AI (<1.0)
[2016-12-22 04:29] LABS: BASOPHILS 0.1 %; BASOPHILS ABSOLUTE 0.01 10/3/uL (0.0-0.16); EOSINOPHILS 0 %; HEMATOCRIT 27.7 % (36.0-48.0); HEMOGLOBIN 8.9 g/dL (12.0-16.0); IMMATURE GRANULOCYTES 1.8 %; IMMATURE GRANULOCYTES ABSOLUTE 0.16 10/3/uL (0.0-0.11); LYMPHOCYTES 13.7 %; LYMPHOCYTES ABSOLUTE 1.25 10/3/uL (0.67-4.30); MEAN CORPUSCULAR HEMOGLOB 28.8 pg (26.0-34.0); MEAN CORPUSCULAR VOLUME 89.6 fL (80-100); MONOCYTES 8.1 %; MONOCYTES ABSOLUTE 0.74 10/3/uL (0.21-1.20); NEUTROPHILS 76.3 %; NEUTROPHILS ABSOLUTE 6.94 10/3/uL (2.02-8.40); PLATELET COUNT 225 10/3/uL (150-400); RBC DISTRIBUTION WIDTH 15.3 % (12.0-16.0); RED CELL COUNT 3.09 10/6/uL (4.0-5.6)
[2016-12-22 04:30] LABS: MANUAL DIFF NO %; MEAN CORPUS HGB CONC 32.1 g/dL (32.0-36.0); WHITE BLOOD CELLS 9.1 10/3/uL (4.5-10.5)
[2016-12-22 04:49] LABS: CALCIUM, SERUM 8.8 MG/DL (8.5-10.4); CHLORIDE, SERUM 102 MMOL/L (96-112); CO2 (CARBON DIOXIDE) 32 MMOL/L (24-34); CREATININE 0.49 MG/DL (0.55-1.02); GFR AFRICAN AMERICAN 120 ML/MIN (>=60); GFR NON AFRICAN AMERICAN 104 ML/MIN (>=60); GLUCOSE, SERUM 142 MG/DL (60-99); POTASSIUM, SERUM 4.5 MMOL/L (3.5-5.3); SODIUM, SERUM 140 MMOL/L (135-148)
[2016-12-22 04:51] LABS: BUN (BLOOD UREA NITROGEN) 10 MG/DL (6-23)
[2016-12-23 05:29] LABS: BUN (BLOOD UREA NITROGEN) 9 MG/DL (6-23); CALCIUM, SERUM 8.4 MG/DL (8.5-10.4); CHLORIDE, SERUM 100 MMOL/L (96-112); CO2 (CARBON DIOXIDE) 30 MMOL/L (24-34); CREATININE 0.43 MG/DL (0.55-1.02); GFR AFRICAN AMERICAN 125 ML/MIN (>=60); GFR NON AFRICAN AMERICAN 108 ML/MIN (>=60); SODIUM, SERUM 138 MMOL/L (135-148)
[2016-12-23 05:31] LABS: GLUCOSE, SERUM 96 MG/DL (60-99); POTASSIUM, SERUM 3.6 MMOL/L (3.5-5.3)
[2016-12-23 05:34] LABS: HEMATOCRIT 27.2 % (36.0-48.0); HEMOGLOBIN 8.8 g/dL (12.0-16.0); MEAN CORPUS HGB CONC 32.4 g/dL (32.0-36.0); MEAN CORPUSCULAR VOLUME 89.8 fL (80-100); PLATELET COUNT 228 10/3/uL (150-400); RBC DISTRIBUTION WIDTH 15.5 % (12.0-16.0); RED CELL COUNT 3.03 10/6/uL (4.0-5.6); WHITE BLOOD CELLS 9.9 10/3/uL (4.5-10.5)
[2016-12-23 05:41] LABS: MANUAL DIFF YES %
[2016-12-23 05:50] LABS: C-REACTIVE PROTEIN ULTRAQUANT 34.5 MG/L (<3.0)
[2016-12-23 06:03] LABS: BAND NEUTROPHILS 3 %; LYMPHOCYTES 20 %; LYMPHOCYTES ABSOLUTE (CALC) 1.98 10/3/uL (0.67-4.30); MONOCYTES 9 %; MONOCYTES ABSOLUTE (CALC) 0.89 10/3/uL (0.21-1.20); MYELOCYTES 1 %; NEUTROPHILS ABSOLUTE (CALC) 6.93 10/3/uL (2.02-8.40); PLATELET ESTIMATE ADQ (ADEQUATE); SEGMENTED NEUTROPHIL (0) 67 %; TOTAL NUCLEATED CELLS 100
[2016-12-23 06:04] LABS: RBC MORPHOLOGY NORM (NORMAL)
[2016-12-23 06:39] LABS: PROCALCITONIN <0.05 ng/mL (<0.5)
[2016-12-24 06:01] LABS: HEMATOCRIT 26.3 % (36.0-48.0); HEMOGLOBIN 8.3 g/dL (12.0-16.0); MEAN CORPUS HGB CONC 31.6 g/dL (32.0-36.0); MEAN CORPUSCULAR HEMOGLOB 28.6 pg (26.0-34.0); MEAN CORPUSCULAR VOLUME 90.7 fL (80-100); MEAN PLATELET VOLUME 9.9 fL (9.2-13.0); PLATELET COUNT 210 10/3/uL (150-400); RBC DISTRIBUTION WIDTH 15.5 % (12.0-16.0); WHITE BLOOD CELLS 7.3 10/3/uL (4.5-10.5)
[2016-12-24 06:06] LABS: MANUAL DIFF YES %
[2016-12-24 06:13] LABS: BUN (BLOOD UREA NITROGEN) 7 MG/DL (6-23); CALCIUM, SERUM 8.3 MG/DL (8.5-10.4); CHLORIDE, SERUM 101 MMOL/L (96-112); CO2 (CARBON DIOXIDE) 30 MMOL/L (24-34); CREATININE 0.46 MG/DL (0.55-1.02); GFR AFRICAN AMERICAN 123 ML/MIN (>=60); GFR NON AFRICAN AMERICAN 106 ML/MIN (>=60); GLUCOSE, SERUM 94 MG/DL (60-99); POTASSIUM, SERUM 3.5 MMOL/L (3.5-5.3); SODIUM, SERUM 137 MMOL/L (135-148)
[2016-12-24 06:48] LABS: IMMATURE GRANS ABSOLUTE (CALC) 0.07 10/3/uL (0.0-0.11); LYMPHOCYTES 28 %; LYMPHOCYTES ABSOLUTE (CALC) 2.04 10/3/uL (0.67-4.30); METAMYELOCYTES 1 %; MONOCYTES 9 %; MONOCYTES ABSOLUTE (CALC) 0.66 10/3/uL (0.21-1.20); NEUTROPHILS ABSOLUTE (CALC) 4.53 10/3/uL (2.02-8.40); PLATELET ESTIMATE ADQ (ADEQUATE); RBC MORPHOLOGY NORM (NORMAL); SEGMENTED NEUTROPHIL (0) 62 %; TOTAL NUCLEATED CELLS 100
[2016-12-27 04:35] LABS: HEMATOCRIT 25.2 % (36.0-48.0); HEMOGLOBIN 8.2 g/dL (12.0-16.0); PLATELET COUNT 229 10/3/uL (150-400)
[2016-12-27 05:19] LABS: INTERNATIONAL NORMAL RATI 1.1 UNITS (-)
[2016-12-27 17:34] LABS: BD FL LYMPH (NOT ORD) 13 %; BD FL SOURCE (NOT ORD) RLL; BF BASO (NOT OF) 0 %; BF LARGE MONONUCLEAR 9 %; BF TOTAL CELL CT (NOT ORD 260 /MM3; BODY FLUID EOS (NOT ORD) 0 %; BODY FLUID RBC (NOT ORD) 15000 /MM3; BODY FLUID SEG (NOT ORD) 78 %
[2016-12-28 22:17] LABS: ASCORBIC ACID (UR NOT ORDER) NEG (NEG); BILIRUBIN, URINE NEGATIVE (NEG); KETONE, URINE NEGATIVE (NEG); LEUKOCYTE ESTERASE(NOT OR LARGE (NEG)
[2016-12-28 22:18] LABS: WBC (NOT ORDERED) (RFLEX) > 182 (0-5)
[2016-12-29 06:23] LABS: BASOPHILS 0.1 %; BASOPHILS ABSOLUTE 0.01 10/3/uL (0.0-0.16); EOSINOPHILS 0.2 %; EOSINOPHILS ABSOLUTE 0.02 10/3/uL (0.0-0.53); HEMATOCRIT 26.3 % (36.0-48.0); HEMOGLOBIN 8.5 g/dL (12.0-16.0); IMMATURE GRANULOCYTES 0.9 %; IMMATURE GRANULOCYTES ABSOLUTE 0.08 10/3/uL (0.0-0.11); LYMPHOCYTES 29.7 %; LYMPHOCYTES ABSOLUTE 2.72 10/3/uL (0.67-4.30); MEAN CORPUS HGB CONC 32.3 g/dL (32.0-36.0); MEAN CORPUSCULAR HEMOGLOB 29.5 pg (26.0-34.0); MEAN CORPUSCULAR VOLUME 91.3 fL (80-100); MEAN PLATELET VOLUME 9.2 fL (9.2-13.0); MONOCYTES ABSOLUTE 0.73 10/3/uL (0.21-1.20); NEUTROPHILS 61.1 %; NEUTROPHILS ABSOLUTE 5.59 10/3/uL (2.02-8.40); PLATELET COUNT 252 10/3/uL (150-400); RBC DISTRIBUTION WIDTH 16.1 % (12.0-16.0); RED CELL COUNT 2.88 10/6/uL (4.0-5.6); WHITE BLOOD CELLS 9.2 10/3/uL (4.5-10.5)
[2016-12-29 06:24] LABS: MANUAL DIFF NO %
[2016-12-29 06:34] LABS: BUN (BLOOD UREA NITROGEN) 8 MG/DL (6-23); CALCIUM, SERUM 8.5 MG/DL (8.5-10.4); CHLORIDE, SERUM 103 MMOL/L (96-112); CO2 (CARBON DIOXIDE) 30 MMOL/L (24-34); CREATININE 0.53 MG/DL (0.55-1.02); GFR AFRICAN AMERICAN 117 ML/MIN (>=60); GFR NON AFRICAN AMERICAN 101 ML/MIN (>=60); GLUCOSE, SERUM 87 MG/DL (60-99); POTASSIUM, SERUM 3.1 MMOL/L (3.5-5.3); SGOT(AST) 13 U/L (5-40); SGPT(ALT) 21 U/L (5-65); SODIUM, SERUM 141 MMOL/L (135-148); TOTAL BILIRUBIN 0.2 MG/DL (0-1.2); TOTAL PROTEIN 5.6 G/DL (6.0-8.5)
[2016-12-29 06:35] LABS: A/G RATIO 0.6 (0.7-1.9); ALKALINE PHOSPHATASE 66 U/L (45-117); C-REACTIVE PROTEIN 22.4 MG/L (<8.0); GLOBULIN 3.6 G/DL (2.5-4.1)
[2016-12-29 07:04] LABS: PROCALCITONIN 0.06 ng/mL (<0.5)
[2016-12-29 07:26] LABS: SED RATE 52 MM/HR (0-20)
[2016-12-29 17:37] LABS: IMMUNOGLOBULIN A 138 MG/DL (70-420); IMMUNOGLOBULIN G 850 MG/DL (673-1464); IMMUNOGLOBULIN M 70 MG/DL (30-270)
[2016-12-29 18:46] LABS: HISTOPLASMA AG SOURCE Urine (()); HISTOPLASMA ANTIGEN None detected (())
[2016-12-30 05:58] LABS: BUN (BLOOD UREA NITROGEN) 7 MG/DL (6-23); CALCIUM, SERUM 8.8 MG/DL (8.5-10.4); CHLORIDE, SERUM 104 MMOL/L (96-112); CO2 (CARBON DIOXIDE) 27 MMOL/L (24-34); CREATININE 0.46 MG/DL (0.55-1.02); GFR AFRICAN AMERICAN 123 ML/MIN (>=60); GFR NON AFRICAN AMERICAN 106 ML/MIN (>=60); GLUCOSE, SERUM 90 MG/DL (60-99); POTASSIUM, SERUM 3.7 MMOL/L (3.5-5.3); SODIUM, SERUM 139 MMOL/L (135-148)
[2016-12-30] MEDS ORDERED: KDUR10 PO (10:07)
[2016-12-30] MEDS ORDERED: MACROBID PO (10:08)
[2016-12-30] MEDS ORDERED: STERAPRED DS10 MG (10:09)
[2016-12-31 16:14] LABS: BLASTOMYCES DERMATITIDIS AG None detected ng/mL (<0.20)
== END 2016-12-30 11:13 | disposition home or self-care (01) | DRG 163 ==
LOC: ER 18:52 → 6NO 22:23 → SDC/OF 12-20 14:49 → CCU 12-20 15:31 → 6NO 12-22 12:33
PROVIDERS: Emergency Medicine; Internal Medicine; Internal Medicine Critical Care Medicine; Internal Medicine Infectious Disease; Internal Medicine Pulmonary Disease
DX: J44.1 Chronic obstructive pulmonary disease with (acute) exacerbation (principal); J96.01 Acute respiratory failure with hypoxia; J84.89 Other specified interstitial pulmonary diseases; J45.901 Unspecified asthma with (acute) exacerbation; R04.2 Hemoptysis; N39.0 Urinary tract infection, site not specified; F31.9 Bipolar disorder, unspecified; F17.210 Nicotine dependence, cigarettes, uncomplicated; G89.29 Other chronic pain; F41.9 Anxiety disorder, unspecified; B96.20 Unspecified Escherichia coli [E. coli] as the cause of diseases classified elsewhere; R19.7 Diarrhea, unspecified; I10 Essential (primary) hypertension; Z87.440 Personal history of urinary (tract) infections
CPT/HCPCS: 31720; 36600; 71010; 71020; 71250; 74000; 74176; 80048; 80053; 80074; 81001; 82550; 82784; 82805; 83516; 83516-59; 83605; 83615; 83690; 83735; 84132; 84145; 84155; 84165; 84484; 85014; 85018; 85025; 85045; 85049; 85610; 85652; 85730; 86039; 86140; 86141; 86160; 86255; 86334; 86431; 86612; 86644; 86645; 87015; 87040; 87070; 87077; 87086; 87101; 87102; 87116; 87186; 87205; 87252; 87385; 87389; 87449; 87493; 87493-59; 87496; 88112; 88172; 88173; 88305; 88312; 88333; 89051; 93005; 94002; 94003; 94640; 94660; 94770; 96374; 99291; A9270-GY; C1725; C1757; J0330; J1570; J1580; J1956; J2370; J2405; J2543; J2920; J3010; J3370

== ENCOUNTER 2017-01-09 23:59 | Emergency (ER) | payer OTHER ==
[2017-01-09 20:47] LABS: BASOPHILS 0 %; EOSINOPHILS 0 %; HEMATOCRIT 34.9 % (36.0-48.0); HEMOGLOBIN 11.4 g/dL (12.0-16.0); IMMATURE GRANULOCYTES 0.5 %; IMMATURE GRANULOCYTES ABSOLUTE 0.05 10/3/uL (0.0-0.11); LYMPHOCYTES 13.3 %; LYMPHOCYTES ABSOLUTE 1.36 10/3/uL (0.67-4.30); MANUAL DIFF NO %; MEAN CORPUS HGB CONC 32.7 g/dL (32.0-36.0); MEAN CORPUSCULAR VOLUME 91.8 fL (80-100); MEAN PLATELET VOLUME 8.9 fL (9.2-13.0); MONOCYTES 4.7 %; MONOCYTES ABSOLUTE 0.48 10/3/uL (0.21-1.20); NEUTROPHILS 81.5 %; NEUTROPHILS ABSOLUTE 8.31 10/3/uL (2.02-8.40); PLATELET COUNT 279 10/3/uL (150-400); WHITE BLOOD CELLS 10.2 10/3/uL (4.5-10.5)
[2017-01-09 20:51] LABS: ASCORBIC ACID (UR NOT ORDER) NEG (NEG); BILIRUBIN, URINE NEGATIVE (NEG); ER URINALYSIS TAT 0 Hrs 10 Mins; KETONE, URINE NEGATIVE (NEG); LEUKOCYTE ESTERASE(NOT OR NEG (NEG); NITRITE (URINE) NEG (NEG); WBC (NOT ORDERED) (RFLEX) 2 (0-5)
[2017-01-09 21:12] LABS: A/G RATIO 0.7 (0.7-1.9); ALKALINE PHOSPHATASE 112 U/L (45-117); BUN (BLOOD UREA NITROGEN) 5 MG/DL (6-23); CHLORIDE, SERUM 103 MMOL/L (96-112); CO2 (CARBON DIOXIDE) 26 MMOL/L (24-34); CREATININE 0.58 MG/DL (0.55-1.02); GFR AFRICAN AMERICAN 114 ML/MIN (>=60); GFR NON AFRICAN AMERICAN 98 ML/MIN (>=60); GLOBULIN 4.1 G/DL (2.5-4.1); GLUCOSE, SERUM 114 MG/DL (60-99); POTASSIUM, SERUM 4.2 MMOL/L (3.5-5.3); SGOT(AST) 48 U/L (5-40); SGPT(ALT) 19 U/L (5-65); SODIUM, SERUM 135 MMOL/L (135-148); TOTAL BILIRUBIN 0.5 MG/DL (0-1.2); TOTAL PROTEIN 7.1 G/DL (6.0-8.5)
[~2017-01-09 23:59] MED LIST changes: +KDUR10 PO; +LEVSINTAB PO; +MACROBID PO; +NORCO1 TAB PO; +STERAPRED DS10 MG
== END 2017-01-10 00:40 | disposition left against medical advice (07) ==
LOC: ER 23:59
PROVIDERS: Emergency Medicine
DX: Z53.21 Procedure and treatment not carried out due to patient leaving prior to being seen by health care provider (principal); R10.9 Unspecified abdominal pain; M54.9 Dorsalgia, unspecified
CPT/HCPCS: 80053; 81001; 83690; 85025